=== PATIENT | male | born 1995 | race Caucasian/White ===

== ENCOUNTER 2025-09-01 20:40 | Emergency (ER) | payer OTHER ==
[~2025-09-01] VITALS: Ht 167.6 cm; Wt 69.4 kg
[2025-09-01 21:16] VITALS: O2SAT 100
[2025-09-02] MEDS: ONDANSETRON 4MG ODT PO ONE (00:45)
[2025-09-02] MEDS: ACETAMINOPHEN 500MG TABLET PO ONE (00:46)
[2025-09-02] MEDS ORDERED: IBUP-1455 MT (01:09)
[2025-09-02 01:49] VITALS: BP 133/87; PULSE 67; RESP 18; TEMP 36.9; O2SAT 100
== END 2025-09-02 01:49 | disposition home or self-care (01) ==
LOC: ER 20:40
DX: S00.83XA Contusion of other part of head, initial encounter (principal); M54.2 Cervicalgia; M47.812 Spondylosis without myelopathy or radiculopathy, cervical region; Y08.89XA Assault by other specified means, initial encounter; Y93.89 Activity, other specified; Y92.89 Other specified places as the place of occurrence of the external cause; Y99.8 Other external cause status
CPT/HCPCS: 99284; 70450; 70486; 72125; Q0162